=== PATIENT | female | born 1960 | race Caucasian/White ===

== ENCOUNTER 2017-08-28 03:06 | Emergency (ER) | payer SELFPAY ==
[2017-08-28] MEDS: FAMOTIDINE 20 MG TAB PO (06:32)
[2017-08-28] MEDS: predniSONE 20 MG TAB PO (06:32)
[2017-08-28] MEDS: DIPHENHYDRAMINE 25 MG CAP PO (06:33)
== END 2017-08-28 07:05 | disposition home or self-care (01) ==
LOC: FTE 03:06
DX: R21 Rash and other nonspecific skin eruption (principal); I10 Essential (primary) hypertension
CPT/HCPCS: 99283